=== PATIENT | male | born 1990 | race Caucasian/White ===

== ENCOUNTER 2017-01-09 06:17 | Emergency (ER) | payer SELFPAY ==
[~2017-01-09] VITALS: Ht 182.9 cm; Wt 65.8 kg
[~2017-01-09 06:17] MED LIST: FAMO-119 PO; HYDR-757 PO; NAPR-243 PO; ONDA8TAB13 PO; SULF-222 PO; TRM50T PO
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
[2017-01-09] MEDS ORDERED: LIDOCAINE 1% INJ 20 ML (XYLOCAINE) VIAL ONE (07:44)
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
[2017-01-09 08:32] VITALS: BP 140/91
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
== END 2017-01-09 08:32 | disposition home or self-care (01) ==
LOC: EDUNIT# 06:17 → ER 06:22
DX: S01.01XA Laceration without foreign body of scalp, initial encounter (principal); F17.210 Nicotine dependence, cigarettes, uncomplicated; Y08.89XA Assault by other specified means, initial encounter; Y92.009 Unspecified place in unspecified non-institutional (private) residence as the place of occurrence of the external cause
CPT/HCPCS: 70450; 99283

== ENCOUNTER 2017-01-17 14:20 | Emergency (ER) | payer SELFPAY ==
[~2017-01-17] VITALS: Ht 182.9 cm; Wt 65.8 kg
[2017-01-17 14:56] VITALS: BP 125/74
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
== END 2017-01-17 14:57 | disposition home or self-care (01) ==
LOC: EDUNIT# 14:20 → ER 14:22
DX: S01.01XD Laceration without foreign body of scalp, subsequent encounter (principal)

== ENCOUNTER 2017-07-26 08:19 | Emergency (ER) | payer SELFPAY ==
[~2017-07-26] VITALS: Ht 182.9 cm; Wt 63.5 kg
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
[2017-07-26 10:30] LABS: BILIRUBIN,URINE NEGATIVE (NEGATIVE); CLARITY,URINE VERY CLOUDY; GLUCOSE, URINE (UA) NEGATIVE (NEGATIVE); KETONES,URINE NEGATIVE (NEGATIVE); LEUKOCYTE ESTERASE ,URINE 1+ (NEGATIVE); NITRITE,URINE NEGATIVE (NEGATIVE); PH,URINE 6.5 (5-9); PROTEIN,URINE 2+ (NEGATIVE); UROBILINOGEN,URINE NORMAL (NORMAL)
[2017-07-26 10:37] LABS: BACTERIA,URINE NEGATIVE /HPF; COLOR,URINE YELLOW; RBC,URINE TNTC /HPF
--- NOTE | 2017-07-26 10:59 | ED GU-Male ---
General Chief Complaint: Abdominal/GI Problems Stated Complaint: KIDNEYS HURT, ABD PAIN Nursing Triage Note: AMB TO ROOM C/O LOW ABD PAIN AND L SIDE PAIN ONSET LAST NIGHT Source: patient Exam Limitations: no limitations History of Present Illness Time seen by provider: 09:58 Initial Comments Here with complaint of low abdominal pain and left-sided pain since last night. This was associated with nausea. Patient has history of gastritis and stated it sort of felt like that but that was worse. After getting to the ER, he states the pain actually started to get a little better and states it's pretty much better now. Noticed that his urine is darker. Denies fevers chills. Denies vomiting but did have nausea with the pain. States the pain was quite severe this morning. Timing/Duration: this morning Severity/Quality: moderate, severe, cramping, sharp Location: left flank Radiation: LLQ Activities at Onset: none Modifying Factors: Improves With Resting, Improves With Urinating Associated Symptoms: abdominal pain, No diaphoresis, No dysuria, No fever/ chills, nausea/vomiting, No urinary frequency Allergies and Home Medications Allergies Coded Allergies: No Known Drug Allergies (Unverified , 04/02/09) Home Medications No Active Prescriptions or Reported Meds Constitutional: see HPI, No chills, No fever EENTM: no symptoms reported Respiratory: no symptoms reported Cardiovascular: no symptoms reported Gastrointestinal: see HPI, abdominal pain, No diarrhea, nausea, No vomiting Genitourinary: see HPI, flank pain, pain Musculoskeletal: back pain, No neck pain Skin: no symptoms reported All Other Systemes Reviewed Negative Unless Noted: Yes Past Fkmawbo-Thnyrw-Osuevm Hx Patient Social History Alcohol Use: Denies Use Number of Drinks Today: AA Alcohol Beverage of Choice: Beer Recreational Drug Use: No Smoking Status: Current Everyday Smoker Type Used: Cigarettes Recent Foreign Travel: No Contact w/Someone Who Travel: No Recent Infectious Disease Expo: No Recent Hopitalizations: No Immunizations Up To Date Tetanus Booster (TDap): More than 5yrs Seasonal Allergies Seasonal Allergies: No Surgeries History of Surgeries: Yes Surgeries: Adenoidectomy, Tonsillectomy Respiratory History of Respiratory Disorde: No Cardiovascular History of Cardiac Disorders: No Neurological History of Neurological Disord: No Genitourinary History of Genitourinary Disor: No Gastrointestinal History of Gastrointestinal Di: No Musculoskeletal History of Musculoskeletal Dis: No Endocrine History of Endocrine Disorders: No HEENT History of HEENT Disorders: No Cancer History of Cancer: No Psychosocial History of Psychiatric Problem: No Integumentary History of Skin or Integumenta: No Blood Transfusions History of Blood Disorders: No Reviewed Nursing Assessment Reviewed/Agree w Nursing PMH: Yes Family Medical History Significant Family History: No Pertinent Family Hx Physical Exam Vital Signs Vital Sign - Last 12Hours 07/26/17 09:19 Temp 97.8 Pulse 65 Resp 18 Capillary Refill : Less Than 3 Seconds General Appearance: WD/WN, no apparent distress HEENT: PERRL/EOMI, pharynx normal Neck: full range of motion, supple Cardiovascular: regular rate, rhythm, no murmur Respiratory: lungs clear, normal breath sounds Gastrointestinal: normal bowel sounds, non tender, soft Back: normal inspection, no CVA tenderness, no vertebral tenderness Extremities: non-tender, normal inspection Neurologic/Psychiatric: alert, oriented x 3 Skin: normal color, warm/dry Progress/Results/Core Measures Suspected Sepsis Recent Fever Within 48 Hours: No Infection Criteria Present: None New/Unexplained Altered Menta: No Sepsis Screen: No Definite Risk Sepsis Diagnosis: SIRS Temperature:97.8 Pulse: 65 Respiratory Rate: 18 Blood Pressure / Mean: Results/Orders Lab Results Laboratory Tests Test 07/26/17 10:20 Range/Units Urine Color YELLOW Urine Clarity VERY CLOUDY H Urine pH 6.5 5-9 Urine Specific [place] 1.015 L 1.016-1.022 Urine Protein 2+ H NEGATIVE Urine Glucose (UA) NEGATIVE NEGATIVE Urine Ketones NEGATIVE NEGATIVE Urine Nitrite NEGATIVE NEGATIVE Urine Bilirubin NEGATIVE NEGATIVE Urine Urobilinogen NORMAL NORMAL MG/DL Urine Leukocyte Esterase 1+ H NEGATIVE Urine RBC (Auto) 5+ H NEGATIVE Urine RBC TNTC H /HPF Urine WBC 2-5 /HPF Urine Squamous Epithelial Cells NONE /HPF Urine Crystals NONE /LPF Urine Bacteria NEGATIVE /HPF Urine Casts NONE /LPF Urine Mucus NEGATIVE /LPF Urine Culture Indicated NO My Orders Orders - VAIBHAV SEGUNDO MD Ua Culture If Indicated (07/26/17 10:02) Ct Abd/Pelvis Wo(Kidney Stone) (07/26/17 10:55) Abdomen/Kub 1view (07/26/17 11:14) Vital Signs/I&O Vital Sign - Last 12Hours 07/26/17 09:19 Temp 97.8 Pulse 65 Resp 18 B/P (MAP) Capillary Refill : Less Than 3 Seconds Progress Note : Progress Note Seen and evaluated. UA ordered. This was positive for blood. CT abdomen and pelvis kidney stone protocol ordered. Pain is still resolved. Monitor patient. 1115: CT does note kidney stone. KUB ordered. We will treat as outpatient. I think it is reasonable possibility that this will actually pass on its own in time. This was discussed with the patient and he is okay when trying as an outpatient. Discharged home with return precautions. Patient verbalize understanding instructions and agreement with plan. Diagnostic Imaging Diagonstic Imaging: CT Plain Films/CT/US/NM/MRI: abdomen, pelvis Comments NAME: CARLOS DALEY [facility] REC#: [id number] PT STATUS: REG ER : 1990 PHYSICIAN: VAIBHAV SEGUNDO MD ADMIT DATE: 07/26/17/ER Draft Date of Exam:07/26/17 CT ABD/PELVIS WO(KIDNEY STONE) PROCEDURE: CT urinary tract, rule out kidney stone. TECHNIQUE: Multiple contiguous axial images were obtained through the abdomen and pelvis without the use of intravenous contrast. DATE: 07/26/2017. COMPARISON: None. INDICATION: 26-year-old male, left flank pain and hematuria. FINDINGS: There are limitations for evaluation of the abdominal organs, neoplastic processes, abscess, and limited evaluation of the vasculature relating to the lack of intravenous contrast. The visualized portions of the lungs are clear. The heart is not enlarged. There is no pericardial effusion. The liver is normal in size and contour. The gallbladder is unremarkable. There is no intrahepatic or extrahepatic bile duct dilation. The main pancreatic duct is not abnormally distended. Unremarkable appearance of the pancreatic parenchyma. The spleen is not enlarged. There are calcifications of the right adrenal gland likely relating to sequela of prior insult. The left adrenal gland is unremarkable in appearance. There is a punctate 1 mm nonobstructing right renal stone best demonstrated on coronal image 34. There is mild left hydronephrosis. There is a stone in the left proximal ureter on axial image 63 which measures 4 mm in size. There is no right hydronephrosis. There is no right ureteral stone. There is mild urinary bladder wall thickening which may potentially reflect cystitis or chronic outlet obstruction. The urinary bladder is not particularly distended although the wall thickening is somewhat prominent for the degree of urinary bladder underdistention. The intestinal tract is not distended. The appendix is best identified on axial image 101 and adjacent sequential images. This also can be seen on coronal image 32. There is no evidence of acute appendicitis. There is no free intraperitoneal air. There is no drainable fluid collection. There is no free pelvic fluid. There is no identified abnormally enlarged lymph node in the abdomen or pelvis specifically meeting CT size criteria for adenopathy. There is no identified acute bony abnormality. IMPRESSION: CT ABDOMEN AND PELVIS. 1. 4 mm stone in the left proximal ureter with mild left hydronephrosis. 2. 1 mm nonobstructing right renal stone. Dictated on workstation # [id number] Dict: 07/26/17 1106 Trans: 07/26/17 1114 [id number] Interpreted by: VITO BERGER MD Electronically signed by: Reviewed: Reviewed by Me Departure Impression Impression: Primary Impression: Kidney stone on left side Disposition: 01 HOME, SELF-CARE Condition: Stable Departure-Patient Inst. Decision time for Depature: 11:21 Referrals: [facility] [place] ([place]P/Family) Primary Care Physician Patient Instructions: Kidney Stones in Adults Add. Discharge Instructions: All discharge instructions reviewed with patient and/or family. Voiced understanding. Drink plenty of fluids. Take medications as directed. Follow-up with the urologist next week for recheck and further evaluation as needed. Return for worse pain and a fever, vomiting, weakness, breathing problems or other concerns as needed. You should take ibuprofen 600 mg every 8 hours as needed for pain and you may take this scheduled for the next few days. Strain your urine each time to see if you can collect the stone to know when it passed. Scripts Hydrocodone/Acetaminophen (Hydrocodon-Acetaminoph 7.5-325) 1 Each Tablet 1 EACH PO Q6H, #14 TAB 0 Refills Prov: VAIBHAV SEGUNDO MD 07/26/17 Cephalexin (Cephalexin) 500 Mg Tablet 500 MG PO QID, #14 TAB 0 Refills Prov: VAIBHAV SEGUNDO MD 07/26/17 VAIBHAV SEGUNDO MD Jul 26, 2017 10:59
--- NOTE | 2017-07-26 11:15 | Diagnostic Imaging Report ---
PROCEDURE: CT urinary tract, rule out kidney stone. TECHNIQUE: Multiple contiguous axial images were obtained through the abdomen and pelvis without the use of intravenous contrast. DATE: 07/26/2017. COMPARISON: None. INDICATION: 26-year-old male, left flank pain and hematuria. FINDINGS: There are limitations for evaluation of the abdominal organs, neoplastic processes, abscess, and limited evaluation of the vasculature relating to the lack of intravenous contrast. The visualized portions of the lungs are clear. The heart is not enlarged. There is no pericardial effusion. The liver is normal in size and contour. The gallbladder is unremarkable. There is no intrahepatic or extrahepatic bile duct dilation. The main pancreatic duct is not abnormally distended. Unremarkable appearance of the pancreatic parenchyma. The spleen is not enlarged. There are calcifications of the right adrenal gland likely relating to sequela of prior insult. The left adrenal gland is unremarkable in appearance. There is a punctate 1 mm nonobstructing right renal stone best demonstrated on coronal image 34. There is mild left hydronephrosis. There is a stone in the left proximal ureter on axial image 63 which measures 4 mm in size. There is no right hydronephrosis. There is no right ureteral stone. There is mild urinary bladder wall thickening which may potentially reflect cystitis or chronic outlet obstruction. The urinary bladder is not particularly distended although the wall thickening is somewhat prominent for the degree of urinary bladder underdistention. The intestinal tract is not distended. The appendix is best identified on axial image 101 and adjacent sequential images. This also can be seen on coronal image 32. There is no evidence of acute appendicitis. There is no free intraperitoneal air. There is no drainable fluid collection. There is no free pelvic fluid. There is no identified abnormally enlarged lymph node in the abdomen or pelvis specifically meeting CT size criteria for adenopathy. There is no identified acute bony abnormality. IMPRESSION: CT ABDOMEN AND PELVIS. 1. 4 mm stone in the left proximal ureter with mild left hydronephrosis. 2. 1 mm nonobstructing right renal stone. Dictated by: Dictated on workstation # [id number]
[2017-07-26] MEDS ORDERED: HYDR-3816 PO (11:23)
[2017-07-26] MEDS ORDERED: CEPH500T PO (11:23)
[2017-07-26 11:30] VITALS: BP 132/80
--- NOTE | 2017-07-26 12:28 | Diagnostic Imaging Report ---
EXAMINATION: Abdominal radiographs, single supine view, 2 images. DATE: 07/26/2017. CLINICAL INDICATION: 26-year-old male, evaluation for renal stone. COMPARISON: CT abdomen and pelvis 07/26/2017. COMMENTS: There is a calcification at the level of L4 measuring approximately 3 mm in size radiographically which is at the same level of the previously noted stone on recent CT in the left proximal ureter. The previously noted nonobstructing 1 mm right stone is not radiographically visible. There are gas-filled segments of bowel which are not abnormally distended. There is no identified free intraperitoneal air, portal venous gas, or pneumatosis. IMPRESSION: 1. 3 mm radiodensity at the level of L4 compatible with previously noted left ureteral stone. Dictated by: Dictated on workstation # [id number]
== END 2017-07-26 11:28 | disposition home or self-care (01) ==
LOC: EDUNIT# 08:19 → ER 08:21
DX: N20.0 Calculus of kidney (principal); F17.210 Nicotine dependence, cigarettes, uncomplicated; Z87.19 Personal history of other diseases of the digestive system; Z90.89 Acquired absence of other organs
CPT/HCPCS: 74000; 74176; 81000; 99282

== ENCOUNTER 2017-08-26 07:58 | Emergency (ER) | payer SELFPAY ==
[~2017-08-26] VITALS: Ht 182.9 cm; Wt 63.5 kg
[~2017-08-26 07:58] MED LIST changes: +CEPH500T PO; +HYDR-34 PO
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
--- NOTE | 2017-08-26 08:14 | ED GU-Male ---
General Stated Complaint: POSS KIDNEY STONE Source: patient, family (mother) Exam Limitations: no limitations History of Present Illness Date Seen by Provider: Aug 26, 2017 Time Seen by Provider: 08:07 Initial Comments Patient presents to ER by private conveyance with a chief complaint that for the last 5 days she's had hematuria, dysuria, left-sided back and flank pain reminiscent of a kidney stone he passed about a month and a half ago. He passed the last kidney stone on its own spontaneously and did not utilize urology services. He is not having any fevers or chills, shortness of breath or other history of abdominal surgeries or pain. He is not interested in having an IV placed today. Allergies and Home Medications Allergies Coded Allergies: No Known Drug Allergies (Unverified , 04/02/09) Constitutional: No chills, No diaphoresis EENTM: no symptoms reported Respiratory: No cough, No short of breath Cardiovascular: No chest pain, No palpitations Gastrointestinal: see HPI, abdominal pain (left flank and left upper quadrant) , No constipation, No diarrhea, No nausea, No vomiting Genitourinary: denies discharge, dysuria Skin: No pruritus, No rash Psychiatric/Neurological: Denies Headache, Denies Numbness, Denies Paresthesia Past Lwalikg-Cblmlh-Dvvqep Hx Patient Social History Alcohol Use: Occasionally Uses Alcohol Beverage of Choice: Beer Recreational Drug Use: No Smoking Status: Current Everyday Smoker Type Used: Cigarettes Recent Foreign Travel: No Contact w/Someone Who Travel: No Recent Hopitalizations: No Immunizations Up To Date Tetanus Booster (TDap): More than 5yrs Seasonal Allergies Seasonal Allergies: No Surgeries History of Surgeries: Yes Surgeries: Adenoidectomy, Tonsillectomy Respiratory History of Respiratory Disorde: No Cardiovascular History of Cardiac Disorders: No Neurological History of Neurological Disord: No Genitourinary History of Genitourinary Disor: No Gastrointestinal History of Gastrointestinal Di: No Musculoskeletal History of Musculoskeletal Dis: No Endocrine History of Endocrine Disorders: No HEENT History of HEENT Disorders: No Cancer History of Cancer: No Psychosocial History of Psychiatric Problem: No Integumentary History of Skin or Integumenta: No Blood Transfusions History of Blood Disorders: No Family Medical History Significant Family History: No Pertinent Family Hx Physical Exam Vital Signs Vital Sign - Last 12Hours 08/26/17 08:05 Temp 98.2 Pulse 59 B/P (MAP) 122/99 (107) Pulse Ox 99 O2 Delivery Room Air Capillary Refill : General Appearance: WD/WN, thin HEENT: PERRL/EOMI, pharynx normal Neck: non-tender, normal inspection Cardiovascular: normal peripheral pulses, regular rate, rhythm Respiratory: chest non-tender, lungs clear, normal breath sounds Gastrointestinal: normal bowel sounds, soft, no organomegaly, tenderness (Dr. quadrant and left flank to deep palpation) Back: normal inspection, CVA tenderness (L) (to percussion) Neurologic/Psychiatric: alert, oriented x 3 Skin: normal color, warm/dry Progress/Results/Core Measures Suspected Sepsis SIRS Temperature: Pulse: Respiratory Rate: Blood Pressure / Mean: Results/Orders Lab Results Laboratory Tests Test 08/26/17 08:18 Range/Units Urine Color YELLOW Urine Clarity CLEAR Urine pH 5 5-9 Urine Specific [place] 1.025 H 1.016-1.022 Urine Protein 2+ H NEGATIVE Urine Glucose (UA) NEGATIVE NEGATIVE Urine Ketones 1+ H NEGATIVE Urine Nitrite NEGATIVE NEGATIVE Urine Bilirubin NEGATIVE NEGATIVE Urine Urobilinogen NORMAL NORMAL MG/DL Urine Leukocyte Esterase 1+ H NEGATIVE Urine RBC (Auto) 3+ H NEGATIVE Urine RBC 25-50 H /HPF Urine WBC 5-10 H /HPF Urine Squamous Epithelial Cells RARE /HPF Urine Crystals NONE /LPF Urine Bacteria TRACE /HPF Urine Casts NONE /LPF Urine Mucus SMALL H /LPF Urine Culture Indicated YES My Orders Orders - BEN MATHEWS Ketorolac Injection (Toradol Injection) (08/26/17 08:15) Hydrocodone/Apap 10/325 Tablet (Lortab 1 (08/26/17 08:15) Ua Culture If Indicated (08/26/17 08:10) Ct Abd/Pelvis Wo(Kidney Stone) (08/26/17 08:10) Abdomen/Kub 1view (08/26/17 08:10) Urine Culture (08/26/17 08:18) Ceftriaxone Injection (Rocephin Injectio (08/26/17 09:00) Ceftriaxone Injection (Rocephin Injectio (08/26/17 10:00) Lidocaine 1% Injection (Xylocaine 1% Inj (08/26/17 10:00) Medications Given in ED Current Medications Medications Dose Ordered Sig/Kit Route Start Time Stop Time Status Last Admin Dose Admin Acetaminophen/ Hydrocodone Bitart 1 ea ONCE ONCE PO 08/26/17 08:15 08/26/17 08:16 DC 08/26/17 08:16 1 EA Ketorolac Tromethamine 30 mg ONCE ONCE IM 08/26/17 08:15 08/26/17 08:16 DC 08/26/17 08:17 30 MG Vital Signs/I&O Vital Sign - Last 12Hours 08/26/17 08:05 Temp 98.2 Pulse 59 B/P (MAP) 122/99 (107) Pulse Ox 99 O2 Delivery Room Air Capillary Refill : Progress Note : Time: 08:14 Progress Note Patient prefers not have an IV so we'll use hydrocodone and IM Toradol. He is well-hydrated. We'll go ahead and get a CT and KUB given his recent history of kidney stone. Diagnostic Imaging Diagonstic Imaging: CT Plain Films/CT/US/NM/MRI: abdomen, pelvis (kidney stone study) Comments 4 mm or stone left UVJ. [facility]. [place], [place] NAME: EDI,CARLOS Renato [facility] REC#: [id number] PT STATUS: REG ER : 1990 PHYSICIAN: BEN MATHEWS MD ADMIT DATE: 08/26/17/ER Draft Date of Exam:08/26/17 CT ABD/PELVIS WO(KIDNEY STONE) PROCEDURE: CT urinary tract, rule out kidney stone. TECHNIQUE: Multiple contiguous axial images were obtained through the abdomen and pelvis without the use of intravenous contrast. INDICATION: Left-sided abdominal pain. History of kidney stones. COMPARISON: 07/26/2017 FINDINGS: Included portions of the lung bases are unremarkable. 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 CT abdomen: Since the previous exam, there has been interval migration of previously described proximal left ureteral calculus into the distal left ureter. The calculus now resides just proximal to the UVJ (image 114, series 2). There is persistent mild proximal hydroureteronephrosis. Faint nonobstructive right renal calculus is again noted and is even less conspicuous when compared to prior exam. This may be related to volume averaging. No new renal or ureteral calculi are identified. There is no hydroureteronephrosis or other evidence of obstruction on the right. No focal renal lesions are identified on this noncontrast exam. Right adrenal gland calcifications are again noted. Otherwise, the spleen, pancreas, adrenal glands, and liver have an unremarkable noncontrast CT appearance. Small bowel loops are nondistended. Normal appendix is identified. There is no loculated fluid collection, free fluid, nor free air within the abdomen. No abnormal adenopathy is seen. Bony structures show no acute abnormalities. CT pelvis: Again, calculus is now identified within the distal left ureter. Urinary bladder is unopacified and minimally distended. No calculi are seen within the lumen of the urinary bladder. There is no loculated fluid collection, free fluid, nor free air within the pelvis. No abnormal adenopathy is seen. Bony structures show no acute abnormalities. IMPRESSION: 1. Interval migration of left-sided calculus into the distal left ureter just proximal to the UVJ. Again, there is mild proximal hydroureteronephrosis. 2. Faint nonobstructive right renal calculus. Dictated on workstation # [id number] Dict: 08/26/1748 Trans: 08/26/17 0901 [facility] [id number] Interpreted by: WHITNEY SEGAL MD Electronically signed by: Reviewed: Reviewed by Me Diagonstic Imaging: Xray Plain Films/CT/US/NM/MRI: abdomen (kub) Comments [facility] [place], [place] NAME: CARLOS DALEY [facility] REC#: [id number] PT STATUS: REG ER : 1990 PHYSICIAN: BEN MATHEWS MD ADMIT DATE: 08/26/17/ER Draft Date of Exam:08/26/17 ABDOMEN/KUB 1VIEW INDICATION: Left-sided abdominal pain. Time of exam: 8:56 AM The bowel gas pattern is nonobstructed. No free air is seen. Calcific density lies just inferior to the right L1 transverse process, similar to examination from June and consistent with adrenal calcification. Previously noted left mid ureteric calculus is no longer appreciated. IMPRESSION: No definite radiopaque urinary tract calculi are identified on today's KUB. Dictated on workstation # [id number] Dict: 08/26/17905 Trans: 08/26/17 0914 [facility] [id number] Interpreted by: KAYLA SALCEDO MD Electronically signed by: Reviewed: Reviewed by Me Departure Impression Impression: Primary Impression: Ureteral calculus, left Disposition: 01 HOME, SELF-CARE Condition: Stable Departure-Patient Inst. Decision time for Depature: 10:01 Referrals: [facility]/K (PCP/Family) Primary Care Physician Patient Instructions: Extracorporeal Shock Wave Lithotripsy for Kidney Stones, Kidney Stones (DC) Add. Discharge Instructions: Drink lots of fluids and take one tamsulosin/Flomax daily at night to help pass the stone. Strain your urine seeing see if you catch the stone. Call Dr. Person, urology today about being seen for possible lithotripsy to have the stone broke up using ultrasound. Use Tylenol and ibuprofen as well as the hydrocodone as needed to control your pain. Start taking the antibiotics 1 capsule twice a day tomorrow morning. Scripts Tamsulosin HCl (Flomax) 0.4 Mg Cap 0.4 MG PO HS for 7 Days, #7 CAP 0 Refills Prov: BEN MATHEWS 08/26/17 Hydrocodone Bit/Acetaminophen (Hydrocodone/Acetaminophen 5/325mg Tablet) 1 Tab Tab 1-2 EACH PO Q6H Y for BREAKTHROUGH PAIN, #20 TAB 0 Refills Prov: BEN MATHEWS 08/26/17 Cephalexin (Keflex) 500 Mg Capsule 500 MG PO BID for 7 Days, #14 CAP 0 Refills Prov: BEN MATHEWS 08/26/17 Copy Copies To 1: RONNY PERSON MD Copies To 2: DANIELITO QUINONES TITUS J Aug 26, 2017 08:14
[2017-08-26] MEDS ORDERED: HYDROcodone/APAP 10 MG/325 MG (LORTAB) TAB PO ONE (08:15)
[2017-08-26] MEDS ORDERED: KETOROLAC 30 MG/ML VIAL IM ONE (08:15)
[2017-08-26 08:24] LABS: BILIRUBIN,URINE NEGATIVE (NEGATIVE); CLARITY,URINE CLEAR; GLUCOSE, URINE (UA) NEGATIVE (NEGATIVE); KETONES,URINE 1+ (NEGATIVE); LEUKOCYTE ESTERASE ,URINE 1+ (NEGATIVE); NITRITE,URINE NEGATIVE (NEGATIVE); PH,URINE 5 (5-9); PROTEIN,URINE 2+ (NEGATIVE); UROBILINOGEN,URINE NORMAL (NORMAL)
[2017-08-26 08:33] LABS: BACTERIA,URINE TRACE /HPF; RBC,URINE 25-50 /HPF; SQUAMOUS EPITHELIAL CELL,UR RARE /HPF
[2017-08-26 08:45] LABS: COLOR,URINE YELLOW
[2017-08-26] MEDS ORDERED: cefTRIAXone INJECTION 1,000 MG in NS (IVPB) 50 ML IV ONE (09:00)
--- NOTE | 2017-08-26 09:01 | Diagnostic Imaging Report ---
PROCEDURE: CT urinary tract, rule out kidney stone. TECHNIQUE: Multiple contiguous axial images were obtained through the abdomen and pelvis without the use of intravenous contrast. INDICATION: Left-sided abdominal pain. History of kidney stones. COMPARISON: 07/26/2017 FINDINGS: Included portions of the lung bases are unremarkable. 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 CT abdomen: Since the previous exam, there has been interval migration of previously described proximal left ureteral calculus into the distal left ureter. The calculus now resides just proximal to the UVJ (image 114, series 2). There is persistent mild proximal hydroureteronephrosis. Faint nonobstructive right renal calculus is again noted and is even less conspicuous when compared to prior exam. This may be related to volume averaging. No new renal or ureteral calculi are identified. There is no hydroureteronephrosis or other evidence of obstruction on the right. No focal renal lesions are identified on this noncontrast exam. Right adrenal gland calcifications are again noted. Otherwise, the spleen, pancreas, adrenal glands, and liver have an unremarkable noncontrast CT appearance. Small bowel loops are nondistended. Normal appendix is identified. There is no loculated fluid collection, free fluid, nor free air within the abdomen. No abnormal adenopathy is seen. Bony structures show no acute abnormalities. CT pelvis: Again, calculus is now identified within the distal left ureter. Urinary bladder is unopacified and minimally distended. No calculi are seen within the lumen of the urinary bladder. There is no loculated fluid collection, free fluid, nor free air within the pelvis. No abnormal adenopathy is seen. Bony structures show no acute abnormalities. IMPRESSION: 1. Interval migration of left-sided calculus into the distal left ureter just proximal to the UVJ. Again, there is mild proximal hydroureteronephrosis. 2. Faint nonobstructive right renal calculus. Dictated by: Dictated on workstation # [id number]
--- NOTE | 2017-08-26 09:15 | Diagnostic Imaging Report ---
INDICATION: Left-sided abdominal pain. Time of exam: 8:56 AM The bowel gas pattern is nonobstructed. No free air is seen. Calcific density lies just inferior to the right L1 transverse process, similar to examination from June and consistent with adrenal calcification. Previously noted left mid ureteric calculus is no longer appreciated. IMPRESSION: No definite radiopaque urinary tract calculi are identified on today's KUB. Dictated by: Dictated on workstation # [id number]
[2017-08-26] MEDS ORDERED: LIDOCAINE PF 1% 5 ML (XYLOCAINE) AMP ONE (09:59)
[2017-08-26] MEDS ORDERED: cefTRIAXone 1 GM (ROCEPHIN) VIAL IM ONE (10:00)
[2017-08-26] MEDS ORDERED: LIDOCAINE 1% INJ 20 ML (XYLOCAINE) VIAL INJ ONE (10:00)
[2017-08-26] MEDS ORDERED: CEPH-507 PO (10:03)
[2017-08-26] MEDS ORDERED: TAMS0.4C98 PO (10:03)
[2017-08-26] MEDS ORDERED: ACHD5005 PO (10:03)
[2017-08-26 10:27] VITALS: BP 120/77
== END 2017-08-26 10:29 | disposition home or self-care (01) ==
LOC: EDUNIT# 07:58 → ER 08:00
DX: N20.1 Calculus of ureter (principal); F17.210 Nicotine dependence, cigarettes, uncomplicated; Z90.89 Acquired absence of other organs
CPT/HCPCS: 74018; 74176; 81000; 87088; 96372; 99284